=== PATIENT | female | born 1990 | race Caucasian/White ===

== ENCOUNTER 2017-02-01 22:20 | Outpatient (CLI) | payer BC, MEDICAID ==
[2017-02-01 22:53] LABS: APPEARANCE,URINE CLEAR; BILIRUBIN,URINE NEGATIVE (NEGATIVE); GLUCOSE, URINE NEGATIVE (NEGATIVE); KETONES,URINE NEGATIVE (NEGATIVE); LEUKOCYTE ESTERASE,URINE NEGATIVE (NEGATIVE); NITRITE,URINE NEGATIVE (NEGATIVE); PROTEIN,URINE NEGATIVE (NEGATIVE); URINE SPECIFIC GRAVITY 1.004; UROBILINOGEN,URINE NEGATIVE mg/dL (<2.0)
[2017-02-01 23:07] LABS: URINE BARBITURATES SCREEN NEGATIVE; URINE METHADONE SCREEN NEGATIVE; URINE OPIATES LOW NEGATIVE; URINE PHENCYCLIDINE SCREEN NEGATIVE
== END 2017-02-01 23:54 | disposition home or self-care (01) ==
LOC: LC 22:20
PROVIDERS: ATTEND Obstetrics & Gynecology
DX: Z34.83 Encounter for supervision of other normal pregnancy, third trimester (principal); Z3A.34 34 weeks gestation of pregnancy
CPT/HCPCS: 59025; 80307; 81001

== ENCOUNTER 2017-03-05 21:53 | Outpatient (CLI) | payer BC, MEDICAID ==
[2017-03-05] MEDS ORDERED: HYDROXYZINE PAMOATE 50 MG CAPSULE PO ONE (22:55)
[2017-03-05 23:30] LABS: APPEARANCE,URINE SLIGHTLY-CLOUDY; BILIRUBIN,URINE NEGATIVE (NEGATIVE); GLUCOSE, URINE NEGATIVE (NEGATIVE); KETONES,URINE NEGATIVE (NEGATIVE); LEUKOCYTE ESTERASE,URINE NEGATIVE (NEGATIVE); NITRITE,URINE NEGATIVE (NEGATIVE); PROTEIN,URINE NEGATIVE (NEGATIVE); URINE SPECIFIC GRAVITY 1.009; UROBILINOGEN,URINE NEGATIVE mg/dL (<2.0)
[2017-03-05] MEDS ORDERED: HYDROXYZINE PAMOATE 50 MG CAPSULE ONE (23:30)
[2017-03-05 23:45] LABS: URINE BARBITURATES SCREEN NEGATIVE; URINE METHADONE SCREEN NEGATIVE; URINE OPIATES LOW NEGATIVE; URINE PHENCYCLIDINE SCREEN NEGATIVE
== END 2017-03-05 23:35 | disposition home or self-care (01) ==
LOC: LC 21:53
PROVIDERS: ATTEND Obstetrics & Gynecology
PROC: 4A1HXCZ Monitoring of Products of Conception, Cardiac Rate, External Approach (ICD-10-PCS; principal; 2017-03-05)
DX: O47.1 False labor at or after 37 completed weeks of gestation (principal); Z3A.38 38 weeks gestation of pregnancy
CPT/HCPCS: 59025; 80307; 81005

== ENCOUNTER 2018-01-07 18:57 | Outpatient (CLI) | payer BC, MEDICAID ==
--- NOTE | 2018-01-07 19:08 | Non Stress Test Report ---
Non Stress Test Datetime Report Generated by CPN: 01/07/2018 19:07 DEMOGRAPHIC Test Number: 1 EGA NST: 38.4 EGA NST: 34.0 INDICATION Indication for Study: Ordered by Provider Indication for Study: Ordered by Provider MONITORING Monitor Explained: Monitor Explained; Test Explained; Patient Verbalized Understanding Monitor Explained: Monitor Explained; Test Explained; Patient Verbalized Understanding Time on Monitor: 03/05/2017 22:10 Time on Monitor: 02/01/2017 22:39 Time off Monitor: 03/05/2017 23:25 NST Duration: 75 NST INTERVENTIONS NST Interventions: Reposition Patient NST Interventions: PO Hydration; Reposition Patient Physician Notified NST: Jacob Physician Notified NST: Dr. James BABY A: [id number] BABY A Movement : Present Movement : Present Contraction Frequency : x1 FHR Baseline : 125 Accelerations : 15X15 Accelerations : 15X15 Decelerations : None Variability : Moderate 6-25bpm Variability : Moderate 6-25bpm NST Review: Meets Criteria for Reactive NST NST Review: Meets Criteria for Reactive NST NST Review: Meets Criteria for Reactive NST NST Review and Verified By : BRIDGETT Wood NST Review and Verified By : Lucio Frank RN NST Results: Reactive NST Results: Reactive NST REPORT Report Trigger: Send Report
[2018-01-07 19:55] LABS: APPEARANCE,URINE SLIGHTLY-CLOUDY; BILIRUBIN,URINE NEGATIVE (NEGATIVE); COLOR,URINE YELLOW; GLUCOSE, URINE NEGATIVE (NEGATIVE); KETONES,URINE NEGATIVE (NEGATIVE); LEUKOCYTE ESTERASE,URINE MODERATE (NEGATIVE); NITRITE,URINE NEGATIVE (NEGATIVE); PROTEIN,URINE NEGATIVE (NEGATIVE); URINE SPECIFIC GRAVITY 1.014
[2018-01-07] MEDS ORDERED: ACETAMINOPHEN 325 MG TABLET PO ONE (20:09)
[2018-01-07] MEDS ORDERED: ACETAMINOPHEN 325 MG TABLET ONE (20:12)
[2018-01-07 20:17] LABS: URINE AMPHETAMINES SCREEN NEGATIVE; URINE BARBITURATES SCREEN NEGATIVE; URINE BENZODIAZEPINES SCREEN NEGATIVE; URINE COCAINE SCREEN NEGATIVE; URINE MARIJUANA (THC) SCREEN NEGATIVE; URINE METHADONE SCREEN NEGATIVE; URINE PHENCYCLIDINE SCREEN NEGATIVE
--- NOTE | 2018-01-07 21:31 | RADIOLOGY REPORT (SQ) ---
EXAM DESCRIPTION: U/S OB LIMITED COMPLETED DATE/TIME: 01/07/2018 9:06 pm REASON FOR STUDY: incision pain previous c section pre term labor COMPARISON: None. TECHNIQUE: Limited transabdominal grayscale ultrasound for evaluation of specific requested obstetri luis miguel parameters. LIMITATIONS: None. FINDINGS: EUGENE: 5.2 cm. FHR: 133 beats per minute. PRESENTATION: Cephalic. OTHER: Anterior placenta. No significant abnormality identified at scar. IMPRESSION: LIMITED OBSTETRICAL ULTRASOUND WITH MEASURED PARAMETERS DELINEATED ABOVE. Trimester of : Third trimester - 28 weeks to delivery. TECHNICAL DOCUMENTATION: JOB ID: [id number] [employer]- All Rights Reserved Reading location - IP/workstation name: [email or web address]
== END 2018-01-07 22:03 | disposition home or self-care (01) ==
LOC: LC 18:57
PROVIDERS: ATTEND Obstetrics & Gynecology
DX: O47.03 False labor before 37 completed weeks of gestation, third trimester (principal); Z3A.34 34 weeks gestation of pregnancy
CPT/HCPCS: 59025; 76815; 80307; 81001

== ENCOUNTER 2018-01-31 08:53 | Inpatient (IN) | payer BC, MEDICAID ==
[2018-01-31] MEDS ORDERED: RINGERS SOLUTION,LACTATED 1,000 ML IV ONE (09:32)
[2018-01-31] MEDS ORDERED: CEFAZOLIN 2 GM/D5W RTU 50 ML IV ONE (09:32)
[2018-01-31] MEDS ORDERED: RINGERS SOLUTION,LACTATED 1,000 ML IV PRN (09:32)
[2018-01-31] MEDS ORDERED: CEFAZOLIN 1 GM/D5W RTU 1 GM/50 ML RTUPB IV ONE (09:55)
[2018-01-31] MEDS ORDERED: CITRIC ACID/SODIUM CITRATE ORAL SOLN 15 ML UDCUP ONE (09:55)
--- NOTE | 2018-01-31 09:57 | Admission Physical ---
Datetime Report Generated by CPN: 01/31/2018 09:57 CURRENT ADMISSION Chief Complaint: Uterine Contractions Indication for Induction: Not Applicable Admit Impression : Term, Intrauterine Admit Plan: Admit to Unit; Initiate Section Protocol ALLERGIES Medication Allergies: No Medication Allergies: No Known Allergies (01/31/2018) Latex: No Latex Allergies OBSTETRICAL HISTORY EDC: 02/16/2018 00:00 : 6 Para: 5 Term: 5 Livin Cesareans: 2 VBACs: 1 Gestational Diabetes: No Rh Sensitization: No Incompetent Cervix: No RUPESH: No Infertility: No ART Treatment: No Uterine Anomaly: No IUGR: Yes Hx Previous C/S: Yes Macrosomia: No Hx Loss/Stillborn: No PIH: No Hx : No Placenta Previa/Abruption: No Depression/PP Depression: Yes PTL/PROM: No Post Hemorrhage: No Obstetrical History Comments: G1 2006, , girl, 40wks G2 2008, , boy, 40 wks G3 2012, 40wks, girl, c section G4 2013, 39wks, boy, c section G5 2016 , [facility] G6 current scheduled section SEE RECORDS Alcohol: No Marijuana : No Cocaine: No Other Illicit Drugs: No Cigarettes: Former Smoker. 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 Surgery: No Heart Disease: No Hosp/Surgery: No Autoimmune Disorder: No Anesthetic Complications: No Kidney Disease: No Abnormal Pap Smear: No Neuro/Epilepsy: No Psychiatric Disorders: Yes Other Medical Diseases: No Hepatitis/Liver Disease: No Significant Family History: No Varicosities/Phlebitis: No Trauma/Violence : No Thyroid Dysfunction: No Medical History Comments: anxiety/depression - currently no meds INFECTIOUS HISTORY Gonorrhea: No Genital Herpes: No Chlamydia: No Tuberculosis: No Syphilis: No Hepatitis: No HIV/AIDS Exposure: No Rash or Viral Illness: No HPV: No PHYSICAL EXAM General: Normal HEENT: Normal Neurologic: Normal Thyroid: Deferred Heart: Normal Lungs: Normal Breast: Deferred Back: Normal Abdomen: Normal Genitourinary Exam: Normal Extremities: Normal DTRs: Deferred Pelvic Type: Adequate Vital Signs: Reviewed VAGINAL EXAM Dilatation: 5 Effacement: 90 Station: -1 Contraction Comments: painful, irreg FETUS A EGA: 37.5 Monitoring: External US FHR- Baseline: 135 Variability: Moderate 6-25bpm Accelerations: 15X15 Decelerations: None Estimated Weight (gm): 3300 Presentation: Vertex Admit Comment: soft cx with palpable bag. has previous c/s x2 and previous vaginal deliveries x3 with one being . pt requests c/s with BTL. sees [facility] for prozac and clonazepam for anxiety. smoker and close interval pregnancies. Dr James called and plan is for c/s with BTL. PLANS FOR LABOR AND DELIVERY Labor and Delivery: None Pain Management: Epidural Feeding Preference: Formula Benefit of Breast Feed Discussed: Yes Circumcision: Yes INFORMED CONSENT Assignment: Bertha James MD Signature: with User ID: [email or web address] : with User ID: [email or web address]
[2018-01-31] MEDS ORDERED: OXYTOCIN 10 UNIT/ML VIAL ONE (10:20)
[2018-01-31] MEDS ORDERED: FENTANYL CITRATE INJ/PF 100 MCG/2 ML AMPUL ONE (10:20)
[2018-01-31] MEDS ORDERED: MIDAZOLAM 2 MG/2 ML INJ ONE (10:20)
[2018-01-31] MEDS ORDERED: ONDANSETRON HCL INJ/PF 4 MG/2 ML SDV ONE (10:20)
[2018-01-31] MEDS ORDERED: EPHEDRINE SULFATE INJ 50 MG/1 ML AMPULE ONE (10:21)
[2018-01-31] MEDS ORDERED: TETRACAINE HCL/PF 20MG/2ML AMPULE (SPINAL) ONE (10:21)
[2018-01-31] MEDS ORDERED: ACETAMINOPHEN 100 ML IV ONE (10:21)
[2018-01-31 10:28] LABS: ABSOLUTE EOSINOPHILS # (AUTO) 0.1 10^3/uL (0.0-0.6); ABSOLUTE LYMPHOCYTES (AUTO) 1.9 10^3/uL (0.5-4.7); ABSOLUTE MONOCYTES (AUTO) 0.6 10^3/uL (0.1-1.4); ABSOLUTE NEUT (AUTO) 7.5 10^3/uL (1.7-8.2); BASOPHILS % (AUTO) 0.5 % (0-2); EOSINOPHILS % (AUTO) 0.5 % (0-6); HEMATOCRIT 36.8 % (36.0-47.0); HEMOGLOBIN 12.6 g/dL (12.0-15.5); LYMPHOCYTES % (AUTO) 18.9 % (13-45); MEAN CORPUSCULAR HEMOGLOBIN 27.8 pg (27.0-33.4); MEAN CORPUSCULAR HGB CONC 34.2 g/dL (32.0-36.0); MEAN CORPUSCULAR VOLUME 81 fl (80-97); MONOCYTES % (AUTO) 5.6 % (3-13); PLATELET COUNT 266 10^3/uL (150-450); RED BLOOD COUNT 4.52 10^6/uL (3.72-5.28); RED CELL DISTRIBUTION WIDTH 14.3 % (11.5-14.0); SEGMENTED NEUTROPHILS % (AUTO) 74.5 % (42-78); TOTAL CELLS COUNTED % (AUTO) 100 %
[2018-01-31] MEDS ORDERED: RINGERS SOLUTION,LACTATED 300 ML IV ONE (11:00)
[2018-01-31] MEDS ORDERED: NORMAL SALINE 250 ML IV PRN (11:03)
[2018-01-31] MEDS ORDERED: MORPHINE SULFATE 10 MG/ML INJ ONE ×2 (11:47→13:19)
[2018-01-31] MEDS ORDERED: KETOROLAC TROMETHAMINE 60 MG/2 ML SDV ONE (11:48)
[2018-01-31] MEDS ORDERED: ACETAMINOPHEN 100 ML IV PRN (12:05)
[2018-01-31] MEDS ORDERED: OXYCODONE-ACETAMINOPHEN 5-325 MG TABLET PO PRN ×3 (12:05→12:06)
[2018-01-31] MEDS ORDERED: PROMETHAZINE HCL INJ 25 MG/1 ML VIAL IV PRN ×3 (12:05→12:06)
[2018-01-31] MEDS ORDERED: DIPH/PERTUSS(ACELL)/TETANUS VAC/PF 0.5 ML SYR (>=10YO) IM PRN (12:05)
[2018-01-31] MEDS ORDERED: OXYTOCIN/NORMAL SALINE 20 UNIT/1,000 ML RTUINJ IV PRN (12:05)
[2018-01-31] MEDS ORDERED: MEASLES,MUMPS&RUBELLA VACC/PF 0.5 ML VIAL SUBCUT PRN (12:05)
[2018-01-31] MEDS ORDERED: ACETAMINOPHEN 325 MG TABLET PO PRN (12:05)
[2018-01-31] MEDS ORDERED: DIPHENHYDRAMINE HCL 50 MG/ML VIAL IV PRN (12:06)
[2018-01-31] MEDS ORDERED: MORPHINE SULFATE 10 MG/ML INJ IV PRN (12:06)
[2018-01-31] MEDS ORDERED: FENTANYL CITRATE INJ/PF 100 MCG/2 ML AMPUL IV PRN ×3 (12:06)
[2018-01-31] MEDS ORDERED: MEPERIDINE HCL/PF INJ 25 MG/1 ML DISP.SYRIN IV PRN (12:06)
--- NOTE | 2018-01-31 12:29 | OPERATIVE REPORT E ---
Operative Report NAME: SHELDON REDDY : 1990 AGE: 27Y DATE OF SURGERY: 01/31/2018 ROOM: LR200 PREOPERATIVE DIAGNOSES: 1. IUP AT 37 AND 5. 2. PREVIOUS X2. 3. UNDESIRED FERTILITY. POSTOPERATIVE DIAGNOSES: 1. IUP AT 37 AND 5. 2. PREVIOUS X2. 3. UNDESIRED FERTILITY. OPERATIONS: 1. Low transverse hysterotomy section. 2. Bilateral tubal ligation. SURGEON: KELLI FAROOQ M.D. ANESTHESIA: Dr. Garcia with spinal. ESTIMATED BLOOD LOSS: 600 mL. FINDINGS: A male in cephalic presentation with Apgars of 8 and 9. COMPLICATIONS: None. PATHOLOGY: Bilateral fallopian tubes. PROCEDURE: Patient was taken to the operating room, prepared and draped in normal sterile fashion in supine position with a leftward tilt. A transverse skin incision was made with a scalpel and carried through to the underlying layer of fascia with the same scalpel. Fascia was incised in the midline and extended laterally with Zainab. The rectus muscle was dissected from the fascia with Zainab and the rectus muscle was divided. Peritoneal cavity was entered sharply with Zainab. The bladder blade was inserted. The hysterotomy was nicked with a scalpel and extended laterally with surgeon finger fracture. The infant was then delivered atraumatically. The nose and mouth were suctioned with the suction bulb and the cord was clamped and cut. The infant was handed off to waiting fitness studies teacher. The cord blood was collected. The placenta was removed manually. The uterus was exteriorized and cleared of clot and debris. The hysterotomy was closed with 0 Monocryl in a running locked fashion. A second layer of the same suture was used to imbricate, to ensure hemostasis. A Tom was placed on the left fallopian tube and the mesosalpinx was divided. A large 3-cm section of the fallopian tube was then tied off with 2 pieces of 2-0 chromic, and the intermediate section was removed with Metzenbaums. Hemostasis was obtained with the Bovie. This was repeated on the opposite fallopian tube without difficulty. The uterus was then returned to the abdomen. The pedicles were reinspected and found to be hemostatic. The rectus muscle and peritoneum were reapproximated with a mattress suture of 2-0 chromic. The fascia was closed with 0 Vicryl. The subcutaneous layer was closed with plain catgut. The skin was closed with 4-0 Vicryl. Patient tolerated procedure well. Sponge, lap and needle counts were correct x2. Patient was taken to recovery in stable condition. DICTATING PHYSICIAN: KELLI FAROOQ M.D. [id number] PHY#: [id number] ID: [id number] JOB#: [id number] ACCT: [id number] cc:KELLI FAROOQ M.D. > [facility]
[2018-01-31 12:51] LABS: APPEARANCE,URINE SLIGHTLY-CLOUDY; BILIRUBIN,URINE NEGATIVE (NEGATIVE); COLOR,URINE YELLOW; GLUCOSE, URINE NEGATIVE (NEGATIVE); KETONES,URINE NEGATIVE (NEGATIVE); LEUKOCYTE ESTERASE,URINE LARGE (NEGATIVE); NITRITE,URINE NEGATIVE (NEGATIVE); PROTEIN,URINE NEGATIVE (NEGATIVE); URINE SPECIFIC GRAVITY 1.011; UROBILINOGEN,URINE NEGATIVE mg/dL (<2.0)
[2018-01-31 13:15] LABS: URINE AMPHETAMINES SCREEN NEGATIVE; URINE BARBITURATES SCREEN NEGATIVE; URINE BENZODIAZEPINES SCREEN NEGATIVE; URINE COCAINE SCREEN NEGATIVE; URINE MARIJUANA (THC) SCREEN NEGATIVE; URINE METHADONE SCREEN NEGATIVE; URINE PHENCYCLIDINE SCREEN NEGATIVE
[2018-01-31] MEDS: KETOROLAC TROMETHAMINE INJ/PF 30 MG/1 ML SDV IV SCH ×2 (14:53→21:12)
[2018-01-31] MEDS: OXYCODONE-ACETAMINOPHEN 5-325 MG TABLET PO PRN (15:31)
[2018-01-31] MEDS: CEFAZOLIN 1 GM/D5W RTU 1 GM/50 ML RTUPB IV SCH ×2 (17:32→17:59)
[2018-01-31] MEDS: DOCUSATE SODIUM 100 MG CAPSULE PO SCH (18:00)
[2018-01-31] MEDS: MORPHINE SULFATE 10 MG/ML INJ IV PRN (18:03)
[2018-01-31] MEDS: IBUPROFEN 800 MG TABLET PO SCH (18:04)
[2018-02-01] MEDS: OXYCODONE-ACETAMINOPHEN 5-325 MG TABLET PO PRN ×4 (00:31→13:35)
[2018-02-01] MEDS: CEFAZOLIN 1 GM/D5W RTU 1 GM/50 ML RTUPB IV SCH ×2 (00:32→06:14)
[2018-02-01] MEDS: MORPHINE SULFATE 10 MG/ML INJ IV PRN (01:37)
[2018-02-01] MEDS: IBUPROFEN 800 MG TABLET PO SCH ×5 (01:38→23:47)
[2018-02-01] MEDS: KETOROLAC TROMETHAMINE INJ/PF 30 MG/1 ML SDV IV SCH (06:13)
[2018-02-01 07:02] LABS: HEMATOCRIT 31.7 % (36.0-47.0); MEAN CORPUSCULAR HGB CONC 34.8 g/dL (32.0-36.0); MEAN CORPUSCULAR VOLUME 81 fl (80-97); PLATELET COUNT 183 10^3/uL (150-450); RED BLOOD COUNT 3.93 10^6/uL (3.72-5.28); RED CELL DISTRIBUTION WIDTH 14.1 % (11.5-14.0); WHITE BLOOD COUNT 8.3 10^3/uL (4.0-10.5)
[2018-02-01] MEDS: SIMETHICONE 80 MG TAB.CHEW PO PRN ×3 (08:23→23:47)
[2018-02-01] MEDS ORDERED: BISACODYL 10 MG SUPP.RECT PR ONE (08:48)
--- NOTE | 2018-02-01 08:58 | PDOC PROGRESS REPORT ---
Subjective-OB Progress Note for:: 02/01/18 Subjective: OOB in room, c/o of chest pain, sub sternal, thinks it might be anxiety or gas, hsb at BS, has to get up and move arounf cause she has 4 children at home, pain under control, not passing gas, scant bleeding Physical Exam (OB) Vital Signs: Temp Pulse Resp BP Pulse Ox 97.5 F 108 H 18 123/85 99 02/01/18 04:00 02/01/18 04:00 02/01/18 04:00 02/01/18 04:00 02/01/18 04:00 Intake & Output 01/31/18 02/01/18 02/02/18 06:59 06:59 06:59 Intake Total 1280 Output Total 2300 Balance -1020 Weight 71 kg - Dressing Removed: No Incision: Well Approximated Closure Type: opsite/CDI - Bilateral Tubal Ligation Dressing Removed: No Site: Dressing, Well Approximated - Lochia Lochia Amount: Scant < 10 ml Lochia Color: Rubra/Red - Abdomen Description: Soft, Round Hernia Present: No Fundal Description: Firm, Midline Fundal Height: u/u - u/2 Objective-Diagnostic Laboratory: 02/01/18 06:54 01/31/18 01/31/18 01/31/18 09:02 10:16 10:16 WBC 10.0 RBC 4.52 Hgb 12.6 Hct 36.8 MCV 81 MCH 27.8 MCHC 34.2 RDW 14.3 H Plt Count 266 Seg Neutrophils % 74.5 Lymphocytes % 18.9 Monocytes % 5.6 Eosinophils % 0.5 Basophils % 0.5 Absolute Neutrophils 7.5 Absolute Lymphocytes 1.9 Absolute Monocytes 0.6 Absolute Eosinophils 0.1 Absolute Basophils 0.0 Urine Color YELLOW Urine Appearance SLIGHTLY-CLOUDY Urine pH 7.0 Ur Specific [place] 1.011 Urine Protein NEGATIVE Urine Glucose (UA) NEGATIVE Urine Ketones NEGATIVE Urine Blood NEGATIVE Urine Nitrite NEGATIVE Ur Leukocyte Esterase LARGE H Blood Type O POSITIVE Antibody Screen NEGATIVE 02/01/18 06:54 WBC 8.3 RBC 3.93 Hgb 11.0 L Hct 31.7 L MCV 81 MCH 28.0 MCHC 34.8 RDW 14.1 H Plt Count 183 Seg Neutrophils % Lymphocytes % Monocytes % Eosinophils % Basophils % Absolute Neutrophils Absolute Lymphocytes Absolute Monocytes Absolute Eosinophils Absolute Basophils Urine Color Urine Appearance Urine pH Ur Specific [place] Urine Protein Urine Glucose (UA) Urine Ketones Urine Blood Urine Nitrite Ur Leukocyte Esterase Blood Type Antibody Screen Assessment and Plan(PN) - Assessment and Plan (1) Status post repeat low transverse section Is this a current diagnosis for this admission?: Yes - Time Spent with Patient Time with patient: Less than 15 minutes Medications reviewed and adjusted accordingly: Yes - Disposition Anticipated Discharge: Home Within: within 24 hours - EKG for chest pain, Mylican, dulcolax supp
[2018-02-01] MEDS: DOCUSATE SODIUM 100 MG CAPSULE PO SCH ×2 (09:45→17:26)
[2018-02-01] MEDS: PRENATAL VITAMIN W DHA CAPSULE PO SCH (09:45)
[2018-02-01] MEDS ORDERED: (PENDING PHARMACY ID) (Prenatal No122/Iron/Folic Acid [Prenatal Multi Tablet] 1 EACH) PO SCH (10:00)
[2018-02-01] MEDS ORDERED: NA PHOS,M-B/NA PHOS,DI-BA (ADULT) 133 ML ENEMA PR ONE (12:00)
--- NOTE | 2018-02-01 12:33 | EKG REPORT ---
SEVERITY:- OTHERWISE NORMAL ECG - SINUS TACHYCARDIA : Confirmed by: Casper Saravia MD 01-Feb-2018 12:32:02
[2018-02-01] MEDS: HYDROMORPHONE HCL INJ/PF 2 MG/ML AMPULE IV PRN ×2 (16:14→21:58)
[2018-02-02] MEDS: IBUPROFEN 800 MG TABLET PO SCH ×2 (05:30→12:05)
[2018-02-02] MEDS: OXYCODONE-ACETAMINOPHEN 5-325 MG TABLET PO PRN ×2 (05:31→09:58)
[2018-02-02] MEDS: PRENATAL VITAMIN W DHA CAPSULE PO SCH (09:58)
[2018-02-02] MEDS: DOCUSATE SODIUM 100 MG CAPSULE PO SCH (09:58)
--- NOTE | 2018-02-02 10:19 | PDOC DISCHARGE SUMMARY ---
Final Diagnosis Discharge Date: 02/02/18 - Final Diagnosis (1) Status post repeat low transverse section Is this a current diagnosis for this admission?: Yes Discharge Data - Discharge Medication Home Medications: No122/Iron/Folic Acid [ Multi Tablet] 1 each PO DAILY 02/01/17 Reason(s) for Admission: Ceasarean Section-Repeat Procedures: None Intrapartum Procedure(s): : Low Cervical, Transverse - Diagnosis Test Laboratory: Temp Pulse Resp BP Pulse Ox 98.0 F 102 H 16 130/85 H 97 02/02/18 07:39 02/02/18 07:39 02/02/18 07:39 02/02/18 07:39 02/02/18 07:39 01/31/18 01/31/18 02/01/18 09:02 10:16 06:54 RBC 4.52 3.93 Hgb 12.6 11.0 L Hct 36.8 31.7 L Urine Opiates Screen NEGATIVE - Discharge information/Instructions Discharge Activity: Activity As Tolerated Discharge Diet: Regular Disposition: HOME, SELF-CARE Follow up with: [facility] in: 1 - follow up for repeat c/s with tanvi
[2018-02-02 12:40] VITALS: BP 115/79
== END 2018-02-02 13:12 | disposition home or self-care (01) | DRG 766 ==
LOC: LC 08:53 → LR 09:30 → 2S 14:19
PROVIDERS: ADMIT Obstetrics & Gynecology; ATTEND Obstetrics & Gynecology
PROC: 10D00Z1 Extraction of Products of Conception, Low, Open Approach (ICD-10-PCS; principal; 2018-01-31)
PROC: 0UB70ZZ Excision of Bilateral Fallopian Tubes, Open Approach (ICD-10-PCS; 2018-01-31)
PROC: 4A1HXCZ Monitoring of Products of Conception, Cardiac Rate, External Approach (ICD-10-PCS; 2018-01-31)
DX: O34.211 Maternal care for low transverse scar from previous cesarean delivery (principal); O99.344 Other mental disorders complicating childbirth; F41.9 Anxiety disorder, unspecified; O99.334 Smoking (tobacco) complicating childbirth; F17.200 Nicotine dependence, unspecified, uncomplicated; Z37.0 Single live birth; Z3A.37 37 weeks gestation of pregnancy; Z30.2 Encounter for sterilization
CPT/HCPCS: 1961; 36415; 80307; 81005; 85025; 85027; 86592; 86850; 86900; 86901; 86920; 88302; 93005; 93010; 94760; 94799; J0131; J0690; J1170; J1885; J2250; J2270; J2405; J2590; J3010; J3490